=== PATIENT | female | born 1985 | race American Indian/Alaskan Native ===

== ENCOUNTER 2018-03-05 01:25 | Emergency (ER) | payer SELFPAY ==
[2018-03-05] MEDS ORDERED: MOTRIN ONE (02:55)
[2018-03-05 03:02] VITALS: BP 124/71
[2018-03-05] MEDS ORDERED: MOTRIN PO ONE (03:06)
[2018-03-05] MEDS ORDERED: CLEOCIN PO ONE (04:06)
--- NOTE | 2018-03-05 04:06 | Emergency Department Report ---
ED ENT HPI - General Chief complaint: Sore Throat Stated complaint: SORE THROAT Time Seen by Provider: 03/05/18 03:17 Source: patient Mode of arrival: Ambulatory Limitations: No Limitations - History of Present Illness Initial comments: This is a 32-year-old female here for sore throat difficulty swallowing times one day. She says she was exposed to her kids with strep throat. She says she is having fever and chills. Denies any nausea or vomiting. Reports slight headache. Denies any coughing, nasal congestion, runny nose, drooling or chest pain. Pain is 8 out of 10 and achy worse with swallowing. But pain is constant. Denies any difficulty in breathing. Denies any wheezing or stridor. MD complaint: sore throat Onset/Timin -: days(s) Location: throat Severity: severe Severity scale (0 -10): 8 Quality: aching Consistency: constant Worsens with: swallowing, eating Context- Dental: other (patient exposed to strep) Associated Symptoms: fever, pain with swallowing, sore throat. denies: cough, gum swelling, toothache, tinnitus, hearing loss, discharge from ear, rhinorrhea - Related Data Home Medications Medication Instructions Recorded Confirmed Last Taken Vit-Fe Fumar-FA [ 1 tab PO QDAY 02/03/16 02/03/16 02/01/16 08: 00 Vitamin] Previous Rx's Medication Instructions Recorded Last Taken Type Ferrous Gluconate [Fergon 325 MG 325 mg PO QDAY #30 tablet 02/03/16 Unknown Rx tab] Ibuprofen [Motrin] 800 mg PO Q8HR PRN #30 tablet 02/03/16 Unknown Rx oxyCODONE /ACETAMINOPHEN [Percocet 1 - 2 tab PO Q4HR PRN #30 tab 02/03/16 Unknown Rx 5/325] Ibuprofen [Motrin] 800 mg PO Q8HR PRN #30 tablet 07/15/16 Unknown Rx Lidocaine Viscous 2% 15 ml MM BID #100 ml 07/15/16 Unknown Rx Clindamycin [Clindamycin CAP] 300 mg PO Q8H 10 Days #30 cap 03/05/18 Unknown Rx Ibuprofen [Motrin] 600 mg PO Q6H PRN #20 tablet 03/05/18 Unknown Rx Allergies Allergy/AdvReac Type Severity Reaction Status Date / Time No Known Allergies Allergy Verified 06/17/13 23:07 ED Dental HPI - General Chief complaint: Sore Throat Stated complaint: SORE THROAT Time Seen by Provider: 03/05/18 03:17 Source: patient Mode of arrival: Ambulatory Limitations: No Limitations - Related Data Home Medications Medication Instructions Recorded Confirmed Last Taken Vit-Fe Fumar-FA [ 1 tab PO QDAY 02/03/16 02/03/16 02/01/16 08: 00 Vitamin] Previous Rx's Medication Instructions Recorded Last Taken Type Ferrous Gluconate [Fergon 325 MG 325 mg PO QDAY #30 tablet 02/03/16 Unknown Rx tab] Ibuprofen [Motrin] 800 mg PO Q8HR PRN #30 tablet 02/03/16 Unknown Rx oxyCODONE /ACETAMINOPHEN [Percocet 1 - 2 tab PO Q4HR PRN #30 tab 02/03/16 Unknown Rx 5/325] Ibuprofen [Motrin] 800 mg PO Q8HR PRN #30 tablet 07/15/16 Unknown Rx Lidocaine Viscous 2% 15 ml MM BID #100 ml 07/15/16 Unknown Rx Clindamycin [Clindamycin CAP] 300 mg PO Q8H 10 Days #30 cap 03/05/18 Unknown Rx Ibuprofen [Motrin] 600 mg PO Q6H PRN #20 tablet 03/05/18 Unknown Rx Allergies Allergy/AdvReac Type Severity Reaction Status Date / Time No Known Allergies Allergy Verified 06/17/13 23:07 ED Review of Systems ROS: Stated complaint: SORE THROAT Other details as noted in HPI Constitutional: denies: chills, fever Eyes: denies: eye pain, eye discharge, vision change ENT: denies: ear pain, throat pain, dental pain, hearing loss, congestion Respiratory: denies: cough, orthopnea, shortness of breath, SOB with exertion, SOB at rest, stridor, wheezing Cardiovascular: denies: chest pain, palpitations, edema, syncope Gastrointestinal: denies: abdominal pain, nausea, diarrhea Genitourinary: denies: dysuria Musculoskeletal: denies: back pain, joint swelling, arthralgia Skin: denies: rash, lesions Neurological: headache. denies: weakness, numbness, paresthesias, abnormal gait , vertigo ED Past Medical Hx - Past Medical History Previous Medical History?: No Hx Hypertension: No Hx Congestive Heart Failure: No Hx Diabetes: No Hx Deep Vein Thrombosis: No Hx Renal Disease: No Hx Sickle Cell Disease: No Hx Seizures: No Hx Asthma: No Hx COPD: No Hx HIV: No - Surgical History Past Surgical History?: No - Family History Family history: hypertension - Social History Smoking Status: Never Smoker Substance Use Type: None - Medications Home Medications: Home Medications Medication Instructions Recorded Confirmed Last Taken Type Ferrous Gluconate [Fergon 325 MG 325 mg PO QDAY #30 tablet 02/03/16 Unknown Rx tab] Ibuprofen [Motrin] 800 mg PO Q8HR PRN #30 tablet 02/03/16 Unknown Rx Vit-Fe Fumar-FA [ 1 tab PO QDAY 02/03/16 02/03/16 02/01/16 08: 00 History Vitamin] oxyCODONE /ACETAMINOPHEN [Percocet 1 - 2 tab PO Q4HR PRN #30 tab 02/03/16 Unknown Rx 5/325] Ibuprofen [Motrin] 800 mg PO Q8HR PRN #30 tablet 07/15/16 Unknown Rx Lidocaine Viscous 2% 15 ml MM BID #100 ml 07/15/16 Unknown Rx Clindamycin [Clindamycin CAP] 300 mg PO Q8H 10 Days #30 cap 03/05/18 Unknown Rx Ibuprofen [Motrin] 600 mg PO Q6H PRN #20 tablet 03/05/18 Unknown Rx ED Physical Exam - General Limitations: No Limitations General appearance: alert, in no apparent distress - Head Head exam: Present: atraumatic, normocephalic, normal inspection - Eye Eye exam: Present: normal appearance, PERRL, EOMI Pupils: Present: normal accommodation - ENT ENT exam: Present: mucous membranes moist, TM's normal bilaterally, normal external ear exam. Absent: normal orophraynx - Expanded ENT Exam Expanded Ear exam: Present: normal external inspection Mouth exam: Present: normal external inspection. Absent: drooling, trismus, muffled voice, tongue normal, tongue elevation, laceration Teeth exam: Absent: dental caries, fractured tooth #, dental tenderness #, gingival enlargement Throat exam: Positive: tonsillar erythema, tonsillomegaly, other (oropharynx erythema. Uvula midline and oral airways patent). Negative: tonsillar exudate , R peritonsillar mass, L peritonsillar mass - Neck Neck exam: Present: normal inspection, full ROM, lymphadenopathy (anterior;). Absent: tenderness, meningismus - Respiratory Respiratory exam: Present: normal lung sounds bilaterally. Absent: respiratory distress, chest wall tenderness - Cardiovascular Cardiovascular Exam: Present: regular rate, normal rhythm, normal heart sounds. Absent: systolic murmur, diastolic murmur - GI/Abdominal GI/Abdominal exam: Present: soft, normal bowel sounds. Absent: distended, tenderness - Extremities Exam Extremities exam: Present: normal inspection, full ROM, normal capillary refill , other (no clubbing, cyanosis or edema. +2 pulses to all extremities and no neurovascular compromise). Absent: tenderness, pedal edema, joint swelling, calf tenderness - Neurological Exam Neurological exam: Present: alert, oriented X3, normal gait - Psychiatric Psychiatric exam: Present: normal affect, normal mood - Skin Skin exam: Present: warm, dry, intact, normal color. Absent: rash ED Course Vital Signs 03/05/18 02:55 Temperature 99.3 F Pulse Rate 91 H Respiratory 16 Rate Blood Pressure 124/71 O2 Sat by Pulse 97 Oximetry Vital Signs 03/05/18 03/05/18 02:55 05:02 Temperature 99.3 F 98.9 F Pulse Rate 91 H 81 Respiratory 16 18 Rate Blood Pressure 124/71 O2 Sat by Pulse 97 100 Oximetry - Reevaluation(s) Reevaluation #1: 03/05/18 04:54 She given Motrin 800 mg in triage and voiced relief of sore throat. She was given clindamycin 600 mg by mouth her strep throat is positive for strep A. 03/05/18 04:55 ED Medical Decision Making - Lab Data Lab Results 03/05/18 Range/Units Unknown Group A Strep Rapid Positive A (Negative) - Medical Decision Making This is a 32-year-old female here reported that she's been having sore throat, minor headache and fever and chills over the last day. She said she was exposed from her kids with strep. Denies any nausea or vomiting. Patient reports red swollen throat with a full swallowing. She does not have any respiratory symptoms or any nasal congestion or runny nose. Denies any drooling. Patient's here to be evaluated. Patient was evaluated by myself and physical findings for 2+ tonsils with erythema and erythema to oropharynx without any exudate. Uvula is midline and oral airways patent. Her lungs are clear and she has no stridor. Tongue is normal without any drooling. She has anterior cervical lymphadenopathy and strep test is positive for strep A. I discuss results with patient and I also discussed treatment plan and she voiced understanding and she was given pain medication in triage and her pain is relieved. A/P 1: Sore throat-patient given Motrin 800 mg in triage here which relieved her sore throat and I discussed with her that I'll place her on Motrin up and discharged and she needs to gargle warm salt water to help to relieve sore throat. 2: Strep throat-strep test is positive for strep A. patient started on clindamycin 600 mg by mouth and will be discharged home in clindamycin. I discussed with her to keep her environment clean and practice good hand hygiene. She denies a said of work for 48 hours after starting antibiotic. 3: Low-grade fever-patient was given Motrin. Temperature is 99.3 and now temperature is less than 99. Her heart rate is at 81. I discussed with her she needs to increase her fluid intake and to take Motrin every 6 hours 2 days to keep her fever down and then as needed. Education on strep throat, hand hygiene, medication, need to follow-up. Patient does have a primary care physician so she says she'll follow up and she voiced understanding. Discharged home in stable condition vital signs are stable, afebrile, she is nontoxic in appearance and her pain is better. I discussed with her she needs to follow up with her primary care physician and 3-5 days and if her condition worsens then she needs to return to the emergency room. Discharged home with prescription for Motrin and clindamycin and she voiced understanding of discharge instructions. - Differential Diagnosis [employer], exudative tonsillitis, strep throat, URI with pharyngitis Critical care attestation.: If time is entered above; I have spent that time in minutes in the direct care of this critically ill patient, excluding procedure time. ED Disposition Clinical Impression: Sore throat, Fever and chills, Strep throat Disposition: [id number] TO HOME OR SELFCARE Is pt being admited?: No Does the pt Need Aspirin: No Condition: Stable Instructions: Strep Throat (ED), Fever in Adults (ED) Additional Instructions: Please take Motrin as prescribed every 6 hours 2 days and then as needed this will help give fever and sore throat Gargle warm salt water 3 times a day and this will help to relieve his sore throat Avoid hot liquids, spicy food and carbonated beverages as this could beharsh on throat Please take antibiotic as prescribed Follow up with primary care physician in 3-5 days Her condition worsens, return to the emergency room Prescriptions: Clindamycin [Clindamycin CAP] 300 mg PO Q8H 10 Days #30 cap Ibuprofen [Motrin] 600 mg PO Q6H PRN #20 tablet PRN Reason: sore throat and/or fever Referrals: PRIMARY CARE, [Primary Care Provider] - 3-5 Days Forms: Work/School Release Form(ED)
== END 2018-03-05 05:21 | disposition home or self-care (01) ==
LOC: ED 01:25
DX: J02.0 Streptococcal pharyngitis (principal)
CPT/HCPCS: 87430